=== PATIENT | male | born 1965 | race Caucasian/White ===

== ENCOUNTER → 2019-09-22 | Outpatient (CLI) | payer SELFPAY ==
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
[2019-09-22 14:48] VITALS: BP 130/62
[2019-09-22 16:21] LABS: A TYPE INFLUENZA AG NEGATIVE (NEGATIVE); B INFLUENZA AG NEGATIVE (NEGATIVE)
== END ==
LOC: RDC 13:37
PROVIDERS: ATTEND Nurse Practitioner Family
DX: Z20.828 Contact with and (suspected) exposure to other viral communicable diseases (principal); J06.9 Acute upper respiratory infection, unspecified
CPT/HCPCS: 87070; 87077; 87635; 87804; 87880

== ENCOUNTER 2020-03-22 12:57 | Observation (INO) | payer OTHER ==
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
[2020-03-22 14:18] LABS: ABSOLUTE EOSINOPHILS # (AUTO) 0.1 10^3/uL (0.0-0.6); ABSOLUTE LYMPHOCYTES (AUTO) 1.9 10^3/uL (0.5-4.7); ABSOLUTE MONOCYTES (AUTO) 0.4 10^3/uL (0.1-1.4); ABSOLUTE NEUT (AUTO) 3.3 10^3/uL (1.7-8.2); BASOPHILS % (AUTO) 0.5 % (0-2); EOSINOPHILS % (AUTO) 1.5 % (0-6); HEMATOCRIT 38.6 % (37.9-51.0); HEMOGLOBIN 13.8 g/dL (13.5-17.0); LYMPHOCYTES % (AUTO) 32.9 % (13-45); MEAN CORPUSCULAR HEMOGLOBIN 31.1 pg (27.0-33.4); MEAN CORPUSCULAR HGB CONC 35.8 g/dL (32.0-36.0); MEAN CORPUSCULAR VOLUME 87 fl (80-97); MONOCYTES % (AUTO) 7.4 % (3-13); PLATELET COUNT 193 10^3/uL (150-450); RED BLOOD COUNT 4.44 10^6/uL (4.35-5.55); RED CELL DISTRIBUTION WIDTH 12.8 % (11.5-14.0); SEGMENTED NEUTROPHILS % (AUTO) 57.7 % (42-78); TOTAL CELLS COUNTED % (AUTO) 100 %; WHITE BLOOD COUNT 5.8 10^3/uL (4.0-10.5)
[2020-03-22 14:42] LABS: ALBUMIN 4.3 g/dL (3.5-5.0); ALKALINE PHOSPHATASE 69 U/L (38-126); ANION GAP 9 (5-19); ASPARTATE AMINO TRANSFERASE 26 U/L (17-59); BILIRUBIN,DIRECT 0.3 mg/dL (0.0-0.4); BILIRUBIN,TOTAL 0.5 mg/dL (0.2-1.3); BLOOD UREA NITROGEN 10 mg/dL (7-20); CALCIUM 9.3 mg/dL (8.4-10.2); CARBON DIOXIDE 25 mmol/L (22-30); CHLORIDE 104 mmol/L (98-107); GLUCOSE 206 mg/dL (75-110); POTASSIUM 4.3 mmol/L (3.6-5.0); TOTAL PROTEIN 7.3 g/dL (6.3-8.2)
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
--- NOTE | 2020-03-22 18:10 | EKG REPORT ---
SEVERITY:- ABNORMAL ECG - SINUS RHYTHM LEFT AXIS DEVIATION ABNORMAL T, CONSIDER ISCHEMIA, DIFFUSE LEADS : Confirmed by: Aileen Perry 22-Mar-2020 18:09:16
[2020-03-22] MEDS ORDERED: ONDANSETRON HCL INJ/PF 4 MG/2 ML SDV IV PRN (19:53)
[2020-03-22] MEDS ORDERED: MAGNESIUM HYDROXIDE SUSP 30 ML UDCUP PO PRN (19:53)
[2020-03-22] MEDS ORDERED: MAG HYDROX/AL HYDROX/SIMETH SUSP 30 ML UDCUP PO PRN (19:53)
[2020-03-22] MEDS ORDERED: GUAIFENESIN SYRP 200 MG/10 ML UDC PO PRN (19:57)
[2020-03-22] MEDS ORDERED: MELATONIN 5 MG TABLET PO PRN (19:57)
[2020-03-22] MEDS ORDERED: LORAZEPAM INJ 2 MG/1 ML VIAL IV PRN (19:57)
[2020-03-22] MEDS ORDERED: INSULIN REG, HUMAN 100 UNIT/ML 3 ML VIAL (PYX) SUBCUT PRN (19:57)
[2020-03-22] MEDS ORDERED: MORPHINE SULFATE 10 MG/ML INJ IV PRN (19:57)
[2020-03-22] MEDS ORDERED: ACETAMINOPHEN 325 MG TABLET PO PRN (19:57)
[2020-03-22] MEDS ORDERED: DEXTROSE 40% GEL 15 GM TUBE PO PRN ×2 (19:58)
[2020-03-22] MEDS ORDERED: GLUCAGON,HUMAN RECOMB 1 MG INJ IM PRN (19:58)
[2020-03-22] MEDS ORDERED: DEXTROSE 50%-WATER 25 GM/50 ML DISP.SYRIN IV PRN ×2 (19:58)
--- NOTE | 2020-03-22 22:51 | RADIOLOGY REPORT (SQ) ---
BILATERAL CAROTID ARTERY ULTRASOUND: 03/22/2020 9:48 PM CDT TECHNIQUE: Grayscale, color, and spectral evaluation of the carotid arteries was performed. COMPARISON: None available CLINICAL HISTORY: 55-year old patient with syncope. TECHNIQUE: Lou-scale, duplex and color Doppler images of the carotid systems are obtained bilaterally. (Validated velocity measurements with angiographic measurements - Velocity criteria are extrapolated from diameter data as defined by the Society of Radiologists in Ultrasound Consensus Conference, Radiology 2003; 229; 340 - 346.) FINDINGS: Minimal atherosclerotic plaque and intimal thickening is seen within both carotid bulbs as well as the proximal internal and external carotid arteries. Spectral analysis demonstrates peak systolic and end-diastolic velocities as follows: RIGHT: CCA: 139 cm/s, 35.4 cm/s Proximal ICA: 67.3 cm/s, 22.1 cm/s Distal ICA: 66.3 cm/s, 29.0 cm/s LEFT: CCA: 144 cm/s, 36.1 cm/s Proximal ICA: 70.7 cm/s, 16.7 cm/s Distal ICA: 82.5 cm/s, 34.9 cm/s The ICA:CCA ratio on the right is 0.48, and on the left is 0.57. There is antegrade flow in both vertebral arteries. IMPRESSION: No evidence of a hemodynamically significant abnormality within the internal carotid arteries. Peak systolic and end-diastolic velocities are all consistent with luminal narrowing of less than 50%.
--- NOTE | 2020-03-22 22:55 | RADIOLOGY REPORT (SQ) ---
MRA of the brain: 03/22/2020 9:52 PM CDT TECHNIQUE: Noncontrast [id number] images were obtained through the cerebral circulation. Reconstructed MIP and 3-D reconstructed images were also obtained for pertinent clinical evaluation. COMPARISON: CT the head from 03/22/2020 HISTORY: 55-year-old patient with syncope. FINDINGS: No discrete filling defect is seen within the middle, anterior, and posterior cerebral arteries. The bilateral posterior communicating arteries appear to be patent. The right vertebral artery appears to be dominant. The carotid arteries appear to be well opacified. No obvious aneurysm or stenosis is readily apparent. The basilar artery and visualized portions of the posterior circulation appear unremarkable. There is a probable mucous retention cyst seen at the right maxillary sinus. IMPRESSION: No discrete filling defect, aneurysm, or obvious stenosis is seen within the anterior or posterior intracranial circulation. MRA neck: Technique: [id number] imaging was obtained through the neck without intravenous contrast administered. 3-D and MIP reconstructed images were obtained. COMPARISON: None available HISTORY: 65-year-old patient with syncope There is likely a bovine arch present. The brachiocephalic and proximal subclavian arteries are patent and normal in course and caliber. The common carotid arteries, carotid bulbs and proximal external carotid arteries are patent and normal in course and caliber. The cervical segments of the internal carotid arteries are patent and normal in course and caliber. The right vertebral artery is likely dominant. The vertebral arteries are patent and normal in course and caliber. IMPRESSION: There are no findings to suggest a hemodynamically significant stenosis of the carotid arteries.
[2020-03-22] MEDS: HEPARIN SOD (PORCINE) 5,000 UNIT/ML 1 ML VIAL SUBCUT SCH (23:41)
[2020-03-22] MEDS: FAMOTIDINE 20 MG TABLET PO SCH (23:41)
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
[2020-03-23 06:18] LABS: HEMATOCRIT 36.4 % (37.9-51.0); HEMOGLOBIN 12.7 g/dL (13.5-17.0); MEAN CORPUSCULAR HEMOGLOBIN 30.5 pg (27.0-33.4); MEAN CORPUSCULAR HGB CONC 34.9 g/dL (32.0-36.0); MEAN CORPUSCULAR VOLUME 87 fl (80-97); PLATELET COUNT 170 10^3/uL (150-450); RED BLOOD COUNT 4.17 10^6/uL (4.35-5.55); RED CELL DISTRIBUTION WIDTH 12.9 % (11.5-14.0); WHITE BLOOD COUNT 6.4 10^3/uL (4.0-10.5)
[2020-03-23] MEDS: HEPARIN SOD (PORCINE) 5,000 UNIT/ML 1 ML VIAL SUBCUT SCH ×3 (06:35→21:01)
[2020-03-23 06:36] LABS: ANION GAP 9 (5-19); BLOOD UREA NITROGEN 11 mg/dL (7-20); CALCIUM 9.6 mg/dL (8.4-10.2); CARBON DIOXIDE 25 mmol/L (22-30); CHLORIDE 104 mmol/L (98-107); CHOLESTEROL 202.98 mg/dL (0-200); GLUCOSE 221 mg/dL (75-110); POTASSIUM 4.1 mmol/L (3.6-5.0); TRIGLYCERIDES 145 mg/dL (<150)
[2020-03-23 06:47] LABS: DIRECT LDL 154 mg/dL (<100)
[2020-03-23] MEDS ORDERED: INFLUENZA QUAD (6MOS+) 2020-21 VAC 0.5 ML SYR IM ONE (08:00)
--- NOTE | 2020-03-23 09:01 | XCELERA REPORT ---
[address] [address] Transthoracic Echocardiogram Report Name: ANDREW NAVARRO Age: 55 yrs Gender: Male : 1965 Patient Status: Inpatient Patient Location: [address] [place], [place] [address] Study Date: 03/22/2020 08:39 PM History: Syncope Height: 67 in Weight: 277 lb BSA: 2.3 m2 Procedure: A complete two-dimensional transthoracic echocardiogram was performed (2D, M-mode, spectral and color flow Doppler). The study was technically difficult with many images being suboptimal in quality. Reason For Study: Syncopal episode Previous Evaluation: No previous studies were available. History: Syncope. Ordering Physician: BEN HERNANDEZ Performed By: Ciera Luu Interpretation Summary Heart valves poorly visualized. By Doppler no significant stenosis or regurgitation is noted. Left ventricular systolic function is normal. The Ejection Fraction estimate is 60-65% The right ventricular systolic function is normal. There is no mitral regurgitation noted. There is no aortic valve stenosis No tricuspid regurgitation. There is no pericardial effusion. Heart valves poorly visualized. By Doppler no significant stenosis or regurgitation is noted. MMode/2D Measurements & Calculations RVDd: 3.1 cm LVIDd: 5.1 cm FS: 34.6 % Ao root diam: 2.8 cm IVSd: 1.2 cm LVIDs: 3.4 cm EDV(Teich): 126.2 ml Ao root area: 6.2 cm2 LVPWd: 1.1 cm ESV(Teich): 46.2 ml LA dimension: 4.5 cm EF(Teich): 63.4 % Doppler Measurements & Calculations MV E max sarah: MV P1/2t max sarah: Ao V2 max: LV V1 max P.5 cm/sec 119.5 cm/sec 164.1 cm/sec 8.4 mmHg MV A max sarah: MV P1/2t: 68.8 msec Ao max PG: LV V1 mean P.4 cm/sec MVA(P1/2t): 3.2 cm2 10.8 mmHg 3.0 mmHg MV E/A: 1.2 MV dec slope: LV V1 max: 144.6 cm/sec 508.8 cm/sec2 LV V1 mean: MV dec time: 0.24 sec 78.9 cm/sec LV V1 VTI: 30.0 cm PA V2 max: MV P1/2t-pr_phl: 121.4 cm/sec 68.8 msec PA max P.9 mmHg Left Ventricle The left ventricle is normal in size. There is moderate concentric left ventricular hypertrophy. Left ventricular systolic function is normal. The Ejection Fraction estimate is 60-65%. Doppler measurements suggest pseudonormalized left ventricular relaxation, which is associated with grade II/IV or mild to moderate diastolic dysfunction. Regional wall motion abnormalities cannot be excluded due to limited visualization. Right Ventricle The right ventricle is not well visualized secondary to technical limitations. The right ventricular systolic function is normal. Atria The right atrium is normal. The left atrium is mildly dilated. The interatrial septum is intact with no evidence for an atrial septal defect. There is no Doppler evidence for an interatrial shunt. Mitral Valve The mitral valve is grossly normal. There is no mitral regurgitation noted. Aortic Valve The aortic valve is not well visualized secondary to technical limitations. The aortic valve opens well. There is no aortic valve stenosis. Tricuspid Valve The tricuspid valve is not well visualized secondary to technical limitations. No tricuspid regurgitation. Pulmonic Valve The pulmonic valve is not well visualized. There is no pulmonic valvular stenosis. There is a trace or physiologic amount of pulmonic regurgitation. Great Vessels The aortic root is normal size. The inferior vena cava appeared normal and decreased > 50% with respiration (RAP 5-10 mmHg). Effusions There is no pericardial effusion. : BEN HERNANDEZ Anil
[2020-03-23] MEDS: FAMOTIDINE 20 MG TABLET PO SCH ×2 (09:48→21:37)
[2020-03-23] MEDS: INSULIN REG, HUMAN 100 UNIT/ML 3 ML VIAL (PYX) SUBCUT SCH ×4 (09:48→21:35)
[2020-03-23] MEDS: METFORMIN HCL 500 MG TABLET PO SCH ×2 (09:48→17:54)
[2020-03-23 12:57] LABS: URINE AMPHETAMINES SCREEN NEGATIVE; URINE BARBITURATES SCREEN NEGATIVE; URINE BENZODIAZEPINES SCREEN NEGATIVE; URINE COCAINE SCREEN NEGATIVE; URINE MARIJUANA (THC) SCREEN NEGATIVE; URINE METHADONE SCREEN NEGATIVE; URINE PHENCYCLIDINE SCREEN NEGATIVE
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
[2020-03-24 04:55] LABS: ABSOLUTE EOSINOPHILS # (AUTO) 0.1 10^3/uL (0.0-0.6); ABSOLUTE LYMPHOCYTES (AUTO) 1.9 10^3/uL (0.5-4.7); ABSOLUTE MONOCYTES (AUTO) 0.5 10^3/uL (0.1-1.4); ABSOLUTE NEUT (AUTO) 3.7 10^3/uL (1.7-8.2); BASOPHILS % (AUTO) 0.6 % (0-2); EOSINOPHILS % (AUTO) 2.2 % (0-6); HEMATOCRIT 36.8 % (37.9-51.0); HEMOGLOBIN 12.9 g/dL (13.5-17.0); LYMPHOCYTES % (AUTO) 30.5 % (13-45); MEAN CORPUSCULAR HEMOGLOBIN 30.6 pg (27.0-33.4); MEAN CORPUSCULAR HGB CONC 35.1 g/dL (32.0-36.0); MEAN CORPUSCULAR VOLUME 87 fl (80-97); MONOCYTES % (AUTO) 7.5 % (3-13); PLATELET COUNT 164 10^3/uL (150-450); RED BLOOD COUNT 4.22 10^6/uL (4.35-5.55); RED CELL DISTRIBUTION WIDTH 12.9 % (11.5-14.0); SEGMENTED NEUTROPHILS % (AUTO) 59.2 % (42-78); TOTAL CELLS COUNTED % (AUTO) 100 %; WHITE BLOOD COUNT 6.3 10^3/uL (4.0-10.5)
[2020-03-24 05:17] LABS: ALBUMIN 3.9 g/dL (3.5-5.0); ALKALINE PHOSPHATASE 62 U/L (38-126); ANION GAP 10 (5-19); ASPARTATE AMINO TRANSFERASE 27 U/L (17-59); BILIRUBIN,DIRECT 0.2 mg/dL (0.0-0.4); BILIRUBIN,TOTAL 0.5 mg/dL (0.2-1.3); BLOOD UREA NITROGEN 12 mg/dL (7-20); CALCIUM 9.6 mg/dL (8.4-10.2); CARBON DIOXIDE 25 mmol/L (22-30); CHLORIDE 102 mmol/L (98-107); GLUCOSE 190 mg/dL (75-110); POTASSIUM 4.2 mmol/L (3.6-5.0); TOTAL PROTEIN 6.5 g/dL (6.3-8.2)
[2020-03-24] MEDS: HEPARIN SOD (PORCINE) 5,000 UNIT/ML 1 ML VIAL SUBCUT SCH ×2 (05:30→14:16)
[2020-03-24] MEDS: INSULIN REG, HUMAN 100 UNIT/ML 3 ML VIAL (PYX) SUBCUT SCH ×2 (07:59→12:56)
[2020-03-24] MEDS: METFORMIN HCL 500 MG TABLET PO SCH (07:59)
[2020-03-24] MEDS: FAMOTIDINE 20 MG TABLET PO SCH (09:01)
[2020-03-24 13:39] VITALS: BP 143/63
--- NOTE | 2020-03-24 17:07 | PDOC PROGRESS REPORT ---
Subjective Subjective:: MAG GUNDERSON is a 71 year old female who presented to the emergency room as directed by Dr. Gore who found her to have a elevated serum calcium on lab work performed on 03/22/2020. Patient admits chronic hypercalcemia with her usual level being in the range of 11.0, but was found to have a level of 13.[address] Gore's office. She denies any acute signs or symptoms of hyperkalemia although her told ER staff members that she is somewhat more confused over the last few days then per her mental status. She does admit to chronic severe sharp grinding left hip pain worsened by movement and attempts at weightbearing. In the emergency room she was found to have an initial calcium of 13.8, sodium of 126.1, and magnesium of 1.1 and a white blood count of 13,100. Her creatinine was 2.85 and her BUN was 30. At Dr. oGre's direction she was given magnesium sulfate 1 g IV and 1 L of IV normal saline over the course of several hours. Her calcium dropped to 12.8 and her magnesium increased to 1.3 after this initial treatment. Patient was subsequently admitted observation status for further evaluation and treatment D2 Hospital stay 03/23/20. He was seen and examined at bedside. Denies any furt her episode of LOC, syncope. No chest pain, no palpitations. MRA brain and neck no discrete filling defect aneurysm or obvious stenosis. Carotid ultrasound negative for significant stenosis. secured entrance monitor revealed no significant arrhythmia. Echocardiogram showed ejection fraction 60 to 65%, RV systolic function is normal, LV systolic function is normal, grade 2-3 diastolic dysfunction. Cardiology was consulted who recommend a loop recorder and or stress test to be scheduled as an outpatient. A1c was noted to be 9.1 with elevated blood glucose suggesting a diagnosis of type 2 diabetes mellitus. Diabetes does not explain his syncope and his blood glucose at the field when he suffered the syncope was 263 per EMS. D3 Hospital stay 03/24/20. He was seen and examined at bedside. Feels overall well. No further syncopal episode.He was discharge don metformin for a new diagnosis of type 2 DM He will follow up with his PCP and cardiology. Reason For Visit: SYNCOPAL EPISODE,NEW ONSET DIABETES MELLITUS TYPE Physical Exam Vital Signs: Temp Pulse Resp BP Pulse Ox 98.1 F 53 L 20 143/63 H 100 03/24/20 13:34 03/24/20 13:34 03/24/20 13:34 03/24/20 13:34 03/24/20 13:34 Intake & Output 03/23/20 03/24/20 03/25/20 06:59 06:59 06:59 Intake Total 1292 496 Balance 1292 496 Weight 125.8 kg 125.8 kg General appearance: PRESENT: no acute distress, cooperative, obese Head exam: PRESENT: atraumatic, normocephalic Eye exam: PRESENT: EOMI, PERRLA Mouth exam: PRESENT: moist Neck exam: PRESENT: full ROM Respiratory exam: PRESENT: clear to auscultation varun, symmetrical. ABSENT: rales, unlabored Cardiovascular exam: PRESENT: RRR, +S1, +S2. ABSENT: diastolic murmur, systolic murmur Pulses: PRESENT: +2 pedal pulses bilateral Vascular exam: PRESENT: normal capillary refill GI/Abdominal exam: PRESENT: normal bowel sounds, soft. ABSENT: rebound, tenderness Extremities exam: PRESENT: full ROM Musculoskeletal exam: PRESENT: full ROM Neurological exam: PRESENT: alert, awake, oriented to person, oriented to place, oriented to time, oriented to situation Psychiatric exam: PRESENT: normal mood Skin exam: PRESENT: normal color Results Laboratory Results: 03/24/20 04:42 03/24/20 04:42 03/24/20 03/24/20 04:42 04:42 WBC 6.3 RBC 4.22 L Hgb 12.9 L Hct 36.8 L MCV 87 MCH 30.6 MCHC 35.1 RDW 12.9 Plt Count 164 Seg Neutrophils % 59.2 Sodium 137.1 Potassium 4.2 Chloride 102 Carbon Dioxide 25 Anion Gap 10 BUN 12 Creatinine 0.71 Est GFR ( Amer) > 60 Glucose 190 H Calcium 9.6 Total Bilirubin 0.5 AST 27 Alkaline Phosphatase 62 Total Protein 6.5 Albumin 3.9 03/22/20 03/22/20 13:42 18:00 Troponin I < 0.012 < 0.012 Impressions: Brain MRI with MRA 03/22/20 00:00 IMPRESSION: No discrete filling defect, aneurysm, or obvious stenosis is seen within the anterior or posterior intracranial circulation. MRA neck: Technique: [id number] imaging was obtained through the neck without intravenous contrast administered. 3-D and MIP reconstructed images were obtained. COMPARISON: None available HISTORY: 65-year-old patient with syncope There is likely a bovine arch present. The brachiocephalic and proximal subclavian arteries are patent and normal in course and caliber. The common carotid arteries, carotid bulbs and proximal external carotid arteries are patent and normal in course and caliber. The cervical segments of the internal carotid arteries are patent and normal in course and caliber. The right vertebral artery is likely dominant. The vertebral arteries are patent and normal in course and caliber. IMPRESSION: There are no findings to suggest a hemodynamically significant stenosis of the carotid arteries. Abdomen/Pelvis CT 03/22/20 13:35 IMPRESSION: 1. No acute finding in the abdomen or pelvis. 2. Hepatic steatosis. 3. Lumbosacral spondylosis. Head CT 03/22/20 13:35 IMPRESSION: No evidence of acute intracranial process. Multiple partially visualized partially calcified subcutaneous nodules along scalp, likely proliferating trichilemmal cysts. EVIDENCE OF ACUTE STROKE: NO. Chest CT 03/22/20 13:36 IMPRESSION: 1. No acute findings in the thorax. 2. Small hiatal hernia. Carotid Doppler Study 03/22/20 20:04 IMPRESSION: No evidence of a hemodynamically significant abnormality within the internal carotid arteries. Peak systolic and end-diastolic velocities are all consistent with luminal narrowing of less than 50%. Neck MRA 03/22/20 20:06 IMPRESSION: No discrete filling defect, aneurysm, or obvious stenosis is seen within the anterior or posterior intracranial circulation. MRA neck: Technique: [id number] imaging was obtained through the neck without intravenous contrast administered. 3-D and MIP reconstructed images were obtained. COMPARISON: None available HISTORY: 65-year-old patient with syncope There is likely a bovine arch present. The brachiocephalic and proximal subclavian arteries are patent and normal in course and caliber. The common carotid arteries, carotid bulbs and proximal external carotid arteries are patent and normal in course and caliber. The cervical segments of the internal carotid arteries are patent and normal in course and caliber. The right vertebral artery is likely dominant. The vertebral arteries are patent and normal in course and caliber. IMPRESSION: There are no findings to suggest a hemodynamically significant stenosis of the carotid arteries. Assessment and Plan - Diagnosis (1) Episode of syncope Qualifiers: Syncope type: unspecified Qualified Code(s): R55 - Syncope and collapse Is this a current diagnosis for this admission?: Yes (2) Diastolic CHF Qualifiers: Heart failure chronicity: unspecified Qualified Code(s): I50.30 - Unspecified diastolic (congestive) heart failure Is this a current diagnosis for this admission?: Yes (3) Diabetes mellitus type 2 in obese Is this a current diagnosis for this admission?: Yes (4) Morbid obesity Is this a current diagnosis for this admission?: Yes (5) Acute posttraumatic headache Qualifiers: Intractability: not intractable Qualified Code(s): G44.319 - Acute post- traumatic headache, not intractable Is this a current diagnosis for this admission?: Yes
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
== END 2020-03-24 13:55 | disposition home or self-care (01) ==
LOC: ER 12:57 → EH 19:44 → 4W 22:34
PROVIDERS: ADMIT Emergency Medicine; ATTEND Internal Medicine
DX: R55 Syncope and collapse (principal); E11.65 Type 2 diabetes mellitus with hyperglycemia; E66.01 Morbid (severe) obesity due to excess calories; G44.319 Acute post-traumatic headache, not intractable; R11.0 Nausea; S40.212A Abrasion of left shoulder, initial encounter; M54.6 Pain in thoracic spine; M79.10 Myalgia, unspecified site; V87.7XXA Person injured in collision between other specified motor vehicles (traffic), initial encounter; F17.200 Nicotine dependence, unspecified, uncomplicated
CPT/HCPCS: 93005; 99285; 36415 ×3; 82962 ×3; 80307 ×2; 83735 ×2; 84443; 85025 ×2; 85027; 80048; 80053 ×2; 84484; 83036; 80061; 93306; 93880; 70547; 70544; 70450; 71260; 74177; 90686; 93010; G0378 ×3; G0008; J1815 ×2; J3490; 90471